=== PATIENT | male | born 1990 | race Caucasian/White ===

== ENCOUNTER 2020-04-18 17:30 | Outpatient (CLI) | payer OTHER | END 2020-04-18 17:31 | disposition home or self-care (01) | LOC: SLEEPLAB 17:30 | PROVIDERS: ATTEND Family Medicine | DX: G47.33 Obstructive sleep apnea (adult) (pediatric) (principal); R53.83 Other fatigue; G47.00 Insomnia, unspecified | CPT/HCPCS: 95806 ==

== ENCOUNTER 2021-09-03 12:50 | Outpatient (CLI) | payer BC | END 2021-09-03 12:51 | disposition home or self-care (01) | LOC: TBSIIMAG 12:50 | PROVIDERS: ATTEND Orthopaedic Surgery | DX: M23.92 Unspecified internal derangement of left knee (principal); S83.512A Sprain of anterior cruciate ligament of left knee, initial encounter; M67.864 Other specified disorders of tendon, left knee ==

== ENCOUNTER 2021-10-12 11:20 | Outpatient (CLI) | payer BC ==
[2021-10-12 13:03] LABS: #Eosinphils 0.1 10x3/uL (0.0-0.5); #Monocytes 0.6 10x3/uL (0.0-1.1); #Neutrophils 3.7 10x3/uL (1.5-8.4); %Basophils 0.3 % (0.0-2.0); %Eosinophils 1.3 % (0.0-6.0); %Lymphocytes 26.9 % (18.0-47.0); %Monocytes 9.1 % (0.0-10.0); %Neutrophils 62.1 % (40.0-75.0); Hemoglobin 16.2 g/dL (13.5-17.5); Mean Corpuscular HGB CONC 34.5 g/dL (32.0-36.0); Mean Corpuscular Hemoglobin 30.3 pg (27.0-33.0); Mean Corpuscular Volume 87.9 fl (81.2-95.1); Mean Platelet Volume 11.2 fl (7.4-10.4); Platelet Count 206 10x3/uL (150-450); RBC Distribution Width 12.9 % (11.5-14.5); Red Blood Cell (RBC) Count 5.35 10x6/uL (4.32-5.72)
[2021-10-12 13:48] LABS: Anion Gap 13 mmol/L (10-20); BUN (Urea Nitrogen) 17 mg/dL (8.9-20.6); Calc. Creatinine Clearance 0 mL/min (70-130); Calcium 9.1 mg/dL (7.8-10.44); Carbon Dioxide 24 mmol/L (22-29); Chloride 107 mmol/L (98-107); Glucose 85 mg/dL (70-105); Potassium 4.4 mmol/L (3.5-5.1); Sodium 140 mmol/L (136-145)
== END 2021-10-12 11:21 | disposition home or self-care (01) ==
LOC: LABBT 11:20
PROVIDERS: ATTEND Orthopaedic Surgery
DX: Z01.812 Encounter for preprocedural laboratory examination (principal); S83.512A Sprain of anterior cruciate ligament of left knee, initial encounter; Z20.822 Contact with and (suspected) exposure to COVID-19
CPT/HCPCS: 80048; 85025; U0003; U0005

== ENCOUNTER 2021-10-17 07:40 | Observation (INO) | payer BC ==
[2021-10-12 15:33] VITALS: BMI 42.5
[2021-10-17] MEDS ORDERED: Fentanyl 100 MCG/2 ML VIAL ONE ×3 (08:22→12:54)
[2021-10-17] MEDS ORDERED: Midazolam HCl 2 mg/2 ml Vial ONE (08:22)
[2021-10-17] MEDS ORDERED: VANCOMYCIN 2 GRAM/500 ML BAG 2 GM in Premix Bag 1 BAG IVPB SCH (08:30)
[2021-10-17] MEDS ORDERED: Clindamycin/D5W 600 MG in Premix Bag 1 BAG IVPB SCH (08:30)
[2021-10-17] MEDS ORDERED: fentaNYL Citrate/PF 100 MCG/2 ML SYRINGE ONE (09:18)
[2021-10-17] MEDS ORDERED: Clindamycin/D5W 600 mg/50 ml Premix Bag ONE (09:38)
[2021-10-17] MEDS ORDERED: Ondansetron PF 4 MG/2 ML Vial IVP PRN (11:29)
[2021-10-17] MEDS ORDERED: Methocarbamol 500 MG TAB PO PRN (11:29)
[2021-10-17] MEDS ORDERED: Bisacodyl 10 MG SUPP PR PRN (11:29)
[2021-10-17] MEDS ORDERED: diphenhydrAMINE 50 MG CAP PO PRN (11:29)
[2021-10-17] MEDS ORDERED: Morphine 2 MG/ML VIAL SLOW IVP PRN (11:29)
[2021-10-17] MEDS ORDERED: Milk Of Magnesia 30 ML UDCUP PO PRN (11:29)
[2021-10-17] MEDS ORDERED: HYDROcodone/Acetaminophen 7.5/325 mg Tablet PO PRN ×2 (11:29)
[2021-10-17] MEDS ORDERED: Acetaminophen 500 MG TAB PO PRN (11:29)
[2021-10-17] MEDS ORDERED: traMADol HCl 50 MG TAB PO PRN (11:29)
[2021-10-17] MEDS ORDERED: Ondansetron HCl/PF 4 MG/2 ML Vial IVP PRN (11:32)
[2021-10-17] MEDS ORDERED: Promethazine HCl 25 MG/ML VIAL IM PRN (11:32)
[2021-10-17] MEDS ORDERED: Promethazine HCl 25 MG/ML VIAL IVPB PRN (11:32)
[2021-10-17] MEDS: Dextrose 5 %-0.45 % NaCl 1,000 ML IV SCH ×2 (13:20→20:46)
[2021-10-17] MEDS: Ketorolac Tromethamine 30 MG/ML VIAL IVP SCH ×3 (14:44→23:06)
[2021-10-17] MEDS: Clindamycin/D5W 900 MG in Premix Bag 1 BAG IVPB SCH ×2 (15:54→20:24)
[2021-10-17] MEDS: Famotidine 20 MG TAB PO SCH (20:24)
[2021-10-18] MEDS: Ketorolac Tromethamine 30 MG/ML VIAL IVP SCH ×2 (05:42→10:52)
[2021-10-18] MEDS: Dextrose 5 %-0.45 % NaCl 1,000 ML IV SCH (07:06)
[2021-10-18] MEDS: Famotidine 20 MG TAB PO SCH (07:53)
[2021-10-18 11:54] VITALS: BP 172/74; TEMP 97.5
== END 2021-10-18 12:21 | disposition home or self-care (01) ==
LOC: SDC 07:40 → T4-B 13:06
PROVIDERS: ADMIT Orthopaedic Surgery; ATTEND Orthopaedic Surgery
PROC: 0MRP47Z Replacement of Left Knee Bursa and Ligament with Autologous Tissue Substitute, Percutaneous Endoscopic Approach (ICD-10-PCS; principal; 2021-10-17)
PROC: 3E0T3BZ Introduction of Anesthetic Agent into Peripheral Nerves and Plexi, Percutaneous Approach (ICD-10-PCS; 2021-10-17)
DX: S83.512A Sprain of anterior cruciate ligament of left knee, initial encounter (principal); G47.30 Sleep apnea, unspecified; F17.290 Nicotine dependence, other tobacco product, uncomplicated; E66.01 Morbid (severe) obesity due to excess calories; Z68.41 Body mass index [BMI] 40.0-44.9, adult; Z86.16 Personal history of COVID-19; Z79.899 Other long term (current) drug therapy; Z88.0 Allergy status to penicillin; X58.XXXA Exposure to other specified factors, initial encounter; Y93.89 Activity, other specified
CPT/HCPCS: 96374; 96375; 96376; C1713; C1776; C1898; G0378; J1885; J2250; J3010; J3370; J3490; J7042